=== PATIENT | male | born 1995 | race Caucasian/White ===

== ENCOUNTER 2017-03-14 16:43 | Emergency (ER) | payer SELFPAY ==
--- NOTE | ~2017-03-14 | CR169 ---
[facility]. [facility] A Service of [facility] [place] [facility] RADIOLOGY TEXT RESULTS PATIENT: RAFAL JOSE LOCATION: SED : [birth year] UNIT #: [id number] AGE: [address]: Janessa Iqbal APRN SEX: M ORDER DR: [id number] [place] [id number] E MR#: [id number] Acc #: [id number] NAME: RAFAL JOSE : 1995 SEX: M STUDY DATE/TIME: 03/14/2017 17:00 UNIT: SED ROOM: STUDY DESCRIPTION: CR Knee 2 Views Lt Attending Physician: Janessa Iqbal A.P.R.N. Ordering Physician: Janessa Campos A.P.R.N. Primary Care Physician: Primary Care Physician No MEDICAL IMAGING REPORT This report is preliminary unless electronic signature is present. EXAM Left knee, 2 views HISTORY Knee pain after basketball injury today. FINDINGS AP and lateral projection of the knee shows smooth articular anatomy without indication of fracture or dislocation at the major weight-bearing surface of the knee. There is no indication of radiopaque foreign body about the knee surface or joint effusion. IMPRESSION Normal knee. Dictated by... Joseph Winters M.D. THIS IS AN ELECTRONICALLY VERIFIED REPORT Joseph Winters M.D. at 03/14/2017 10:59 PM RICCARDO/jeanna TD: 03/14/2017 21:30 JOB #: [id number] MEDICAL IMAGING REPORT Page 1 of 1
[~2017-03-14 16:43] MED LIST: VOLTAREN75 MG PO
== END 2017-03-14 18:36 | disposition home or self-care (01) ==
LOC: SED 16:43
DX: S83.92XA Sprain of unspecified site of left knee, initial encounter (principal); X58.XXXA Exposure to other specified factors, initial encounter; Y92.009 Unspecified place in unspecified non-institutional (private) residence as the place of occurrence of the external cause
CPT/HCPCS: 29515; 73560; 99283

== ENCOUNTER → 2017-07-22 | Outpatient (CLI) | payer BC ==
--- NOTE | ~2017-07-22 | MR103 ---
[facility] A Service [facility] RADIOLOGY TEXT RESULTS PATIENT: RAFAL GUERRA [facility] [birth year] UNIT #: [id number] AGE: [address]: SALVADOR CARDENAS SEX: M ORDER DR: [id number] [place] [id number] [facility]. [place], [place] [address] [id number] O MR#: [id number] Acc #: [id number] NAME: RAFAL GUERRA. : 1995 SEX: M STUDY DATE/TIME: 07/22/2017 18:46 UNIT: CMRI ROOM: STUDY DESCRIPTION: MR Knee Wo Contrast Lt Attending Physician: Salvador Cardenas Aprn Referring Physician: Salvador Cardenas Aprn Ordering Physician: Salvador Cardenas Aprn Primary Care Physician: No Primary Care Physician MRI CENTER REPORT This report is preliminary unless electronic signature is present. EXAM Left knee MRI without contrast, 07/22/2017. HISTORY 22-year-old male with left knee pain, status post basketball injury 2 months ago. No prior left knee surgery. COMPARISON Left knee x-rays 03/14/2017. TECHNIQUE Routine unenhanced multiplanar, multisequence high-field MR imaging of the left knee was performed. FINDINGS There is a vertically oriented longitudinal tear along the peripheral third of the posterior horn and posterior body segment medial meniscus. There is also a vertically oriented longitudinal signal along the peripheral third of the posterior horn lateral meniscus which extends further lateral than the expected attachment of the meniscofemoral ligament. A lateral meniscus tear is not excluded. There is a high-grade complete versus near complete rupture of the femoral attachment of the anterior cruciate ligament. There is approximately 11 mm anterior tibial translation as the knee is positioned in the scanner. There is also a pivot shift contusion pattern in the lateral compartment with moderate bone contusion/impaction injuries involving the posterior lip of the lateral tibial plateau and anterolateral aspect of the lateral femoral condyle. PCL is intact. Collateral ligaments are intact. Extensor mechanism is intact. Small joint effusion. No popliteal cyst. [facility] A Service [facility] RADIOLOGY TEXT RESULTS PATIENT: RAFAL GUERRA [facility] [id number] : [birth year] UNIT #: [id number] AGE: [address]: SALVADOR CARDENAS SEX: M ORDER DR: Patellofemoral articular cartilage is intact. Medial and lateral compartment articular cartilage is intact. There is a mild bone contusion involving the posterior lip of the medial tibial plateau in addition to the previously noted pivot shift injury in the lateral compartment. Remainder of the bone marrow signal is within expected limits. Visualized musculature demonstrates some mild edema along the popliteus musculotendinous junction suggesting a moderate grade muscle strain. IMPRESSION 1. High-grade full-thickness versus near full-thickness rupture of the femoral attachment of the anterior cruciate ligament. This is associated with at least 11 mm anterior tibial translation as the knee is positioned in the scanner, as well as moderate bone contusion/impaction injuries involving the posterior lip of the lateral tibial plateau and anterolateral aspect of the lateral femoral condyle. 2. Vertically oriented longitudinal tear along the peripheral third of the posterior horn/posterior body segment of the medial meniscus. 3. Vertically oriented longitudinal signal abnormality along the peripheral third of the posterior horn lateral meniscus which extends further laterally than expected for the normal meniscofemoral ligament attachment. Findings are concerning for lateral meniscus tear. 4. Mild bone contusion posterior lip medial tibial plateau. 5. Small joint effusion. 6. Moderate grade strain of the popliteus musculotendinous complex. 7. No evidence of significant articular cartilage loss. Dictated by... Alirio Guerra M.D. THIS IS AN ELECTRONICALLY VERIFIED REPORT Alirio Guerra M.D. at 07/26/2017 2:06 PM ROZ/mark TD: 07/23/2017 19:48 JOB #: [id number] MRI CENTER REPORT Page 1 of 1 COPY
== END | disposition home or self-care (01) ==
LOC: CMRI 18:26
DX: M25.562 Pain in left knee (principal); S83.222A Peripheral tear of medial meniscus, current injury, left knee, initial encounter; S83.262A Peripheral tear of lateral meniscus, current injury, left knee, initial encounter; M25.462 Effusion, left knee; S80.02XA Contusion of left knee, initial encounter
CPT/HCPCS: 73721